=== PATIENT | male | born 1960 | race Caucasian/White ===

== ENCOUNTER → 2017-01-09 | Outpatient (CLI) | payer OTHER ==
[~2017-01-09] MED LIST: ALDACTONE25 MG PO; ASMANEX TW0.22 MG/A1 NS; COZAAR50 MG PO; FLUTICASON0.05 MG/Ac; FUROSEMIDE20 MG PO; LAMICTAL200 MG PO; MYS250 PO; NOR10T PO; PROPANOLOL PO; SIMVASTATIN40 M1 PO; TOPAMAX25 M1 PO; VENTOLIN H0.09 MG/A1 NS
== END | disposition home or self-care (01) ==
LOC: RD 16:26
DX: Q89.9 Congenital malformation, unspecified (principal)

== ENCOUNTER → 2017-02-19 | Outpatient (CLI) | payer OTHER | END | disposition home or self-care (01) | LOC: RD 16:33 | DX: M54.2 Cervicalgia (principal) ==

== ENCOUNTER → 2017-05-22 | Outpatient (CLI) | payer OTHER | END | disposition home or self-care (01) | LOC: RD 16:50 | DX: M79.671 Pain in right foot (principal); M54.2 Cervicalgia ==

== ENCOUNTER → 2017-11-21 | Outpatient (CLI) | payer OTHER | END | disposition home or self-care (01) | LOC: RD 19:18 | DX: Z98.890 Other specified postprocedural states (principal) ==